=== PATIENT | female | born 1970 | race Caucasian/White ===

== ENCOUNTER 2024-05-27 08:21 | Outpatient (CLI) | payer MEDICARE, MEDICAID | END 2024-05-27 08:22 | disposition home or self-care (01) | LOC: CSHSLEEP 08:21 | PROVIDERS: ATTEND Family Medicine | DX: R53.83 Other fatigue (principal); G47.00 Insomnia, unspecified; I10 Essential (primary) hypertension; G47.33 Obstructive sleep apnea (adult) (pediatric) | CPT/HCPCS: 95800 ==

== ENCOUNTER 2025-04-04 16:13 | Emergency (ER) | payer OTHER, MEDICAID ==
[~2025-04-04 16:13] MED LIST: Iopamidol 370 76% 100 ML VIAL ONE
[2025-04-04 18:09] LABS: #Basophils 0.06 10x3/uL (0.0-0.2); #Eosinophils 0.36 10x3/uL (0.0-0.5); #Monocytes 0.74 10x3/uL (0.0-1.1); #Neutrophils 5.59 10x3/uL (1.5-8.4); %Basophils 0.6 % (0.0-2.0); %Eosinophils 3.4 % (0.0-6.0); %Lymphocytes 36.7 % (18.0-47.0); %Monocytes 6.9 % (0.0-10.0); %Neutrophils 52.2 % (40.0-75.0); ALT (SGPT) 14 U/L (Less than 34); AST (SGOT) 14 U/L (11-34); Albumin 3.9 g/dL (3.1-4.5); Alkaline Phosphatase 57 U/L (40-110); Anion Gap 12 mmol/L (10-20); BUN (Urea Nitrogen) 13 mg/dL (9.8-20.1); Bilirubin, Total 0.5 mg/dL (0.3-1.2); Calc. Creatinine Clearance 0 mL/min (70-130); Calcium 9.0 mg/dL (7.8-10.44); Carbon Dioxide 24 mmol/L (22-29); Chloride 108 mmol/L (98-107); Globulin 2.9 g/dL (2.4-3.5); Glucose 86 mg/dL (70-105); Hematocrit 46.0 % (34.9-44.5); Hemoglobin 15.4 g/dL (12.0-15.5); Mean Corpuscular Hemoglobin 31.3 pg (27.0-33.0); Mean Corpuscular Volume 93.5 fL (81.6-98.3); Platelet Count 343 10x3/uL (150-450); Potassium 3.9 mmol/L (3.5-5.1); Red Blood Cell (RBC) Count 4.92 10x6/uL (3.90-5.03); Sodium 140 mmol/L (136-145); White Blood Cell (WBC) Count 10.70 10x3/uL (3.5-10.5)
[2025-04-04] MEDS ORDERED: Dexamethasone 4 MG TAB ONE (18:34)
[2025-04-04] MEDS ORDERED: Orphenadrine Citrate 60 MG/2 ML VIAL ONE (18:42)
[2025-04-04] MEDS ORDERED: Ketorolac Tromethamine 30 MG (1 mL) VIAL ONE (18:43)
== END 2025-04-04 18:51 | disposition home or self-care (01) ==
LOC: CSHERS 16:13
DX: M47.812 Spondylosis without myelopathy or radiculopathy, cervical region (principal); F17.210 Nicotine dependence, cigarettes, uncomplicated
CPT/HCPCS: 70496; 70498; 80053; 85025; J1885; J2360; J3010; 96372; 96374; 96375; J8540; Q9967